=== PATIENT | male | born 1970 | race Caucasian/White ===

== ENCOUNTER 2020-10-06 14:05 | Inpatient (IN) | payer OTHER ==
[~2020-10-06] VITALS: Ht 188 cm; Wt 102.1 kg
[2020-10-06 13:30] VITALS: BP 120/89
[2020-10-06] MEDS ORDERED: ACETAMINOPHEN 325 MG TABLET PO PRN (14:30)
[2020-10-06] MEDS ORDERED: MELATONIN 5 MG TABLET PO PRN (14:30)
[2020-10-06 15:12] LABS: BASOPHILS % (AUTO) 0.6 % (0.0-2.0); EOSINOPHILS % (AUTO) 1.3 % (1.0-6.0); HEMATOCRIT 49.2 % (41-53); HEMOGLOBIN 16.6 g/dL (13.5-17.5); LYMPHOCYTES # (AUTO) 2.7 K/uL (1.0-4.8); LYMPHOCYTES % (AUTO) 23.3 % (22.0-44.0); MEAN CORPUSCULAR HGB CONC 33.7 G/dL (31.0-37.0); MEAN CORPUSCULAR VOLUME 86 fL (80-100); MONOCYTES # (AUTO) 0.9 K/uL (0.1-1.0); MONOCYTES % (AUTO) 7.6 % (2.0-9.0); NEUTROPHILS # (AUTO) 7.9 K/uL (1.8-7.7); NEUTROPHILS % (AUTO) 67.2 % (40.0-70.0); PLATELET COUNT (AUTO) 331 K/uL (150-450); RED BLOOD CELL COUNT(AUTO) 5.72 MIL/uL (4.50-5.90); RED CELL DISTRIBUTION WIDTH 13.1 % (11.5-14.5)
[2020-10-06 15:29] LABS: ALBUMIN 3.7 g/dL (3.4-5.0); BILIRUBIN,TOTAL 0.7 mg/dL (0.1-1.0); CALCIUM, TOTAL 8.8 mg/dL (8.8-10.5); CREATININE 1.44 mg/dL (0.60-1.30); POTASSIUM 4.1 mmol/L (3.5-5.1); TOTAL PROTEIN, SERUM 7.3 g/dL (6.4-8.2)
[2020-10-06] MEDS: ATORVASTATIN CALCIUM 40 MG TABLET PO SCH (20:02)
[2020-10-06] MEDS: SENNA 187 MG TABLET PO SCH (20:04)
[2020-10-06] MEDS: DOCUSATE SODIUM 100 MG CAPSULE PO SCH (20:04)
[2020-10-06] MEDS ORDERED: PANTOPRAZOLE SODIUM 40 MG DR TABLET PO SCH (21:00)
[2020-10-06 22:48] VITALS: BP 156/86
[2020-10-07] VITALS: BP 124/81
[2020-10-07 07:40] VITALS: BP 114/74
[2020-10-07] MEDS: CLOPIDOGREL BISULFATE 75 MG TABLET PO SCH (08:04)
[2020-10-07] MEDS: ASPIRIN 81 MG DR TABLET PO SCH (08:04)
[2020-10-07] MEDS: DOCUSATE SODIUM 100 MG CAPSULE PO SCH ×3 (08:05→20:26)
[2020-10-07] MEDS: ONDANSETRON HCL 4 MG TABLET PO PRN (08:55)
[2020-10-07] MEDS ORDERED: ENOXAPARIN SODIUM 40 MG/0.4 ML PF SYRINGE SQ SCH (09:00)
[2020-10-07] MEDS ORDERED: LISINOPRIL 20 MG TABLET PO SCH (09:00)
[2020-10-07] MEDS ORDERED: HYDROCHLOROTHIAZIDE 25 MG TABLET PO SCH (09:00)
[2020-10-07] MEDS: HEPARIN SODIUM,PORCINE 5,000 UNITS/ML VIAL SQ SCH (20:19)
[2020-10-07] MEDS: SENNA 187 MG TABLET PO SCH ×2 (20:19→20:26)
[2020-10-07] MEDS: ATORVASTATIN CALCIUM 40 MG TABLET PO SCH (20:22)
[2020-10-07 22:14] VITALS: BP 121/78
[2020-10-08] VITALS: BP 131/87
[2020-10-08] MEDS: PANTOPRAZOLE SODIUM 40 MG DR TABLET PO SCH (05:50)
[2020-10-08 06:24] LABS: GLUCOMETER DEV NAME(LOC) 2WR.2B; GLUCOSE,POINT OF CARE 95 MG/DL (70-110)
[2020-10-08 07:05] VITALS: BP 100/72
[2020-10-08 08:55] VITALS: BP 105/86
[2020-10-08] MEDS: CLOPIDOGREL BISULFATE 75 MG TABLET PO SCH (08:58)
[2020-10-08] MEDS: LISINOPRIL 20 MG TABLET PO SCH (08:58)
[2020-10-08] MEDS: HEPARIN SODIUM,PORCINE 5,000 UNITS/ML VIAL SQ SCH ×2 (08:58→20:37)
[2020-10-08] MEDS: ASPIRIN 81 MG DR TABLET PO SCH (08:58)
[2020-10-08] MEDS: HYDROCHLOROTHIAZIDE 25 MG TABLET PO SCH (08:59)
[2020-10-08] MEDS: DOCUSATE SODIUM 100 MG CAPSULE PO SCH ×2 (09:00→20:35)
[2020-10-08] MEDS: ONDANSETRON HCL 4 MG TABLET PO PRN (11:37)
[2020-10-08 15:32] VITALS: BP 104/71
[2020-10-08] MEDS: SENNA 187 MG TABLET PO SCH (20:35)
[2020-10-08] MEDS: ATORVASTATIN CALCIUM 40 MG TABLET PO SCH (20:36)
[2020-10-09] VITALS: BP 106/67
[2020-10-09] MEDS: PANTOPRAZOLE SODIUM 40 MG DR TABLET PO SCH (05:46)
[2020-10-09] MEDS: HYDROCHLOROTHIAZIDE 25 MG TABLET PO SCH (07:47)
[2020-10-09] MEDS: CLOPIDOGREL BISULFATE 75 MG TABLET PO SCH (07:47)
[2020-10-09] MEDS: ASPIRIN 81 MG DR TABLET PO SCH (07:47)
[2020-10-09] MEDS: HEPARIN SODIUM,PORCINE 5,000 UNITS/ML VIAL SQ SCH ×2 (07:48→20:52)
[2020-10-09] MEDS: LISINOPRIL 20 MG TABLET PO SCH (07:48)
[2020-10-09] MEDS: DOCUSATE SODIUM 100 MG CAPSULE PO SCH ×2 (07:53→20:52)
[2020-10-09 07:59] VITALS: BP 108/70
[2020-10-09] MEDS: MECLIZINE HCL 25 MG TABLET PO PRN (09:09)
[2020-10-09 15:05] VITALS: BP 113/71
[2020-10-09] MEDS: ATORVASTATIN CALCIUM 40 MG TABLET PO SCH (20:52)
[2020-10-09] MEDS: SENNA 187 MG TABLET PO SCH (20:52)
[2020-10-09 23:53] VITALS: BP 109/70
[2020-10-10] MEDS: PANTOPRAZOLE SODIUM 40 MG DR TABLET PO SCH (05:53)
[2020-10-10] MEDS: ASPIRIN 81 MG DR TABLET PO SCH (08:10)
[2020-10-10] MEDS: MECLIZINE HCL 25 MG TABLET PO PRN (08:10)
[2020-10-10] MEDS: CLOPIDOGREL BISULFATE 75 MG TABLET PO SCH (08:11)
[2020-10-10] MEDS: HEPARIN SODIUM,PORCINE 5,000 UNITS/ML VIAL SQ SCH ×2 (08:11→20:09)
[2020-10-10] MEDS: HYDROCHLOROTHIAZIDE 25 MG TABLET PO SCH (08:11)
[2020-10-10] MEDS: DOCUSATE SODIUM 100 MG CAPSULE PO SCH ×2 (08:11→20:09)
[2020-10-10 09:15] VITALS: BP 90/69
[2020-10-10] MEDS: LISINOPRIL 20 MG TABLET PO SCH (09:57)
[2020-10-10] MEDS: POLYETHYLENE GLYCOL 3350 17 GM PACKET PO SCH (11:30)
[2020-10-10 17:04] VITALS: BP 114/74
[2020-10-10] MEDS: ATORVASTATIN CALCIUM 40 MG TABLET PO SCH (20:09)
[2020-10-10] MEDS: SENNA 187 MG TABLET PO SCH (20:09)
[2020-10-11 00:44] VITALS: BP 110/73
[2020-10-11] MEDS: PANTOPRAZOLE SODIUM 40 MG DR TABLET PO SCH (05:48)
[2020-10-11] MEDS: MECLIZINE HCL 25 MG TABLET PO PRN (08:00)
[2020-10-11] MEDS: LISINOPRIL 20 MG TABLET PO SCH (08:00)
[2020-10-11] MEDS: CLOPIDOGREL BISULFATE 75 MG TABLET PO SCH (08:00)
[2020-10-11] MEDS: POLYETHYLENE GLYCOL 3350 17 GM PACKET PO SCH (08:00)
[2020-10-11] MEDS: ASPIRIN 81 MG DR TABLET PO SCH (08:00)
[2020-10-11] MEDS: DOCUSATE SODIUM 100 MG CAPSULE PO SCH ×2 (08:00→20:44)
[2020-10-11] MEDS: HYDROCHLOROTHIAZIDE 25 MG TABLET PO SCH (08:00)
[2020-10-11] MEDS: HEPARIN SODIUM,PORCINE 5,000 UNITS/ML VIAL SQ SCH ×2 (08:04→20:44)
[2020-10-11 09:06] VITALS: BP 114/76
[2020-10-11 16:00] VITALS: BP 106/67
[2020-10-11] MEDS: SENNA 187 MG TABLET PO SCH (20:44)
[2020-10-11] MEDS: ATORVASTATIN CALCIUM 40 MG TABLET PO SCH (20:44)
[2020-10-11 23:20] VITALS: BP 112/63
[2020-10-12] MEDS ORDERED: ATOR10TA84 PO (03:59)
[2020-10-12] MEDS ORDERED: PANT-31 PO (03:59)
[2020-10-12] MEDS ORDERED: CLOP-31 PO (03:59)
[2020-10-12] MEDS ORDERED: LISI-662 PO (03:59)
[2020-10-12] MEDS ORDERED: ASPI-728 PO (03:59)
[2020-10-12] MEDS: PANTOPRAZOLE SODIUM 40 MG DR TABLET PO SCH (06:03)
[2020-10-12] MEDS: LISINOPRIL 20 MG TABLET PO SCH (07:59)
[2020-10-12] MEDS: MECLIZINE HCL 25 MG TABLET PO PRN (07:59)
[2020-10-12] MEDS: DOCUSATE SODIUM 100 MG CAPSULE PO SCH ×2 (07:59→20:10)
[2020-10-12] MEDS: ASPIRIN 81 MG DR TABLET PO SCH (07:59)
[2020-10-12] MEDS: POLYETHYLENE GLYCOL 3350 17 GM PACKET PO SCH (07:59)
[2020-10-12] MEDS: HEPARIN SODIUM,PORCINE 5,000 UNITS/ML VIAL SQ SCH ×2 (07:59→20:10)
[2020-10-12] MEDS: CLOPIDOGREL BISULFATE 75 MG TABLET PO SCH (07:59)
[2020-10-12 08:49] VITALS: BP 126/63
[2020-10-12 16:00] VITALS: BP 103/67
[2020-10-12] MEDS: ATORVASTATIN CALCIUM 40 MG TABLET PO SCH (20:10)
[2020-10-12] MEDS: SENNA 187 MG TABLET PO SCH (20:10)
[2020-10-12 23:54] VITALS: BP 100/56
[2020-10-13] MEDS: PANTOPRAZOLE SODIUM 40 MG DR TABLET PO SCH (06:15)
[2020-10-13 07:35] LABS: CALCIUM, TOTAL 8.6 mg/dL (8.8-10.5); CREATININE 1.64 mg/dL (0.60-1.30); POTASSIUM 4.7 mmol/L (3.5-5.1)
[2020-10-13] MEDS: DOCUSATE SODIUM 100 MG CAPSULE PO SCH ×2 (08:07→20:53)
[2020-10-13] MEDS: ASPIRIN 81 MG DR TABLET PO SCH (08:07)
[2020-10-13] MEDS: CLOPIDOGREL BISULFATE 75 MG TABLET PO SCH (08:07)
[2020-10-13] MEDS: HEPARIN SODIUM,PORCINE 5,000 UNITS/ML VIAL SQ SCH ×2 (08:08→20:53)
[2020-10-13] MEDS: POLYETHYLENE GLYCOL 3350 17 GM PACKET PO SCH (08:08)
[2020-10-13] MEDS: MECLIZINE HCL 25 MG TABLET PO PRN (08:10)
[2020-10-13 08:52] VITALS: BP 109/82
[2020-10-13] MEDS: LISINOPRIL 20 MG TABLET PO SCH (09:00)
[2020-10-13 10:17] VITALS: BP 108/69
[2020-10-13 15:39] VITALS: BP 119/85
[2020-10-13] MEDS: ATORVASTATIN CALCIUM 40 MG TABLET PO SCH (20:53)
[2020-10-13] MEDS: SENNA 187 MG TABLET PO SCH (20:53)
[2020-10-14 00:26] VITALS: BP 112/78
[2020-10-14] MEDS: PANTOPRAZOLE SODIUM 40 MG DR TABLET PO SCH (05:52)
[2020-10-14 08:24] VITALS: BP 126/83
[2020-10-14] MEDS: HEPARIN SODIUM,PORCINE 5,000 UNITS/ML VIAL SQ SCH ×2 (08:31→20:01)
[2020-10-14] MEDS: DOCUSATE SODIUM 100 MG CAPSULE PO SCH ×2 (08:32→20:00)
[2020-10-14] MEDS: ASPIRIN 81 MG DR TABLET PO SCH (08:32)
[2020-10-14] MEDS: CLOPIDOGREL BISULFATE 75 MG TABLET PO SCH (08:32)
[2020-10-14] MEDS: LISINOPRIL 20 MG TABLET PO SCH (08:32)
[2020-10-14] MEDS: POLYETHYLENE GLYCOL 3350 17 GM PACKET PO SCH (08:32)
[2020-10-14 16:00] VITALS: BP 136/99
[2020-10-14] MEDS: SENNA 187 MG TABLET PO SCH (20:00)
[2020-10-14] MEDS: ATORVASTATIN CALCIUM 40 MG TABLET PO SCH (20:01)
[2020-10-14 23:21] VITALS: BP 119/72
[2020-10-15] MEDS ORDERED: ATOR40TA28 PO (03:37)
[2020-10-15] MEDS ORDERED: DOCU-275 PO (03:37)
[2020-10-15] MEDS ORDERED: MECL25TA39 PO (03:37)
[2020-10-15] MEDS: PANTOPRAZOLE SODIUM 40 MG DR TABLET PO SCH (06:06)
[2020-10-15 07:51] VITALS: BP 115/85
[2020-10-15] MEDS: CLOPIDOGREL BISULFATE 75 MG TABLET PO SCH (08:02)
[2020-10-15] MEDS: LISINOPRIL 20 MG TABLET PO SCH (08:02)
[2020-10-15] MEDS: ASPIRIN 81 MG DR TABLET PO SCH (08:03)
[2020-10-15] MEDS: DOCUSATE SODIUM 100 MG CAPSULE PO SCH (08:03)
[2020-10-15] MEDS: HEPARIN SODIUM,PORCINE 5,000 UNITS/ML VIAL SQ SCH (08:03)
[2020-10-15] MEDS: POLYETHYLENE GLYCOL 3350 17 GM PACKET PO SCH (08:03)
== END 2020-10-15 10:00 | disposition home or self-care (01) | DRG 66 ==
LOC: 2WR 14:08
PROVIDERS: ADMIT Physical Medicine & Rehabilitation; ATTEND Physical Medicine & Rehabilitation
DX: I63.9 Cerebral infarction, unspecified (principal); K59.00 Constipation, unspecified; I12.9 Hypertensive chronic kidney disease with stage 1 through stage 4 chronic kidney disease, or unspecified chronic kidney disease; F32.9 Major depressive disorder, single episode, unspecified; E78.5 Hyperlipidemia, unspecified; R27.0 Ataxia, unspecified; N18.9 Chronic kidney disease, unspecified; Z87.11 Personal history of peptic ulcer disease; Z79.899 Other long term (current) drug therapy
CPT/HCPCS: 87081; 92507; 92508; 92523; 97110; 97112; 97116; 97150; 97162; 97166; 97530; 97535; 99366; J1644; J1650; Q0162